=== PATIENT | male | born 1985 | race Caucasian/White ===

== ENCOUNTER 2024-05-19 16:24 | Emergency (ER) | payer OTHER ==
[~2024-05-19] VITALS: Ht 162.6 cm; Wt 74.0 kg
[2024-05-19 16:29] VITALS: O2SAT 99
[2024-05-19] MEDS: TETANUS, DIPHTHERIA, PERTUSSIS VAC/PF 0.5ML (>10YR OLD) IM ONE (17:29)
[2024-05-19] MEDS: LIDOCAINE HCL 1% 20ML VIAL INFIL ONE (17:56)
[2024-05-19 18:03] VITALS: BP 132/88; PULSE 78; RESP 12; TEMP 37.11408; O2SAT 100
== END 2024-05-19 18:06 | disposition home or self-care (01) ==
LOC: ER 16:24
DX: S61.212A Laceration without foreign body of right middle finger without damage to nail, initial encounter (principal); X58.XXXA Exposure to other specified factors, initial encounter; Y93.89 Activity, other specified; Y92.89 Other specified places as the place of occurrence of the external cause; Y99.8 Other external cause status
CPT/HCPCS: 73140; 90715; 12002; 90471; 99283; J3490; Z7610

== ENCOUNTER 2024-06-05 17:33 | Emergency (ER) | payer OTHER ==
[~2024-06-05] VITALS: Ht 165.1 cm; Wt 70.0 kg
[2024-06-05 18:03] VITALS: BP 119/86; TEMP 98.7; O2SAT 98
[2024-06-05 18:05] VITALS: PULSE 75; RESP 16; O2SAT 98
== END 2024-06-05 20:01 | disposition home or self-care (01) ==
LOC: ER 17:47
DX: S61.219D Laceration without foreign body of unspecified finger without damage to nail, subsequent encounter (principal); X58.XXXD Exposure to other specified factors, subsequent encounter
CPT/HCPCS: 99281